=== PATIENT | male | born 1985 | race Hispanic/Latino ===

== ENCOUNTER 2019-07-18 17:56 | Emergency (ER) | payer SELFPAY | END 2019-07-18 19:31 | disposition home or self-care (01) | LOC: EDH 17:56 | DX: L03.115 Cellulitis of right lower limb (principal); Z72.0 Tobacco use ==

== ENCOUNTER 2024-01-04 08:46 | Emergency (ER) | payer SELFPAY ==
[~2024-01-04] VITALS: Ht 167.6 cm; Wt 86.2 kg
[2024-01-04] MEDS ORDERED: CIPR7.5D7 OT (11:00)
[2024-01-04 11:04] VITALS: BP 121/80; PULSE 65; RESP 16; O2SAT 100
== END 2024-01-04 11:07 | disposition home or self-care (01) ==
LOC: EDH 08:46
DX: T16.1XXA Foreign body in right ear, initial encounter (principal); W44.9XXA Unspecified foreign body entering into or through a natural orifice, initial encounter; Y93.89 Activity, other specified; Y92.89 Other specified places as the place of occurrence of the external cause; Y99.8 Other external cause status

== ENCOUNTER 2024-09-30 11:49 | Emergency (ER) | payer SELFPAY ==
[~2024-09-30] VITALS: Ht 167.6 cm; Wt 87.5 kg
[~2024-09-30 11:49] MED LIST: CIPR7.5D7 OT
--- NOTE | 2024-09-30 12:35 | EKG ---
[facility] Test Date: 2024-09-30 Test Time: 12:32:59 Pat Name: KENDRA CLIFTON Department: [facility] Room: Gender: M Package Delivery Room Service Runner: [id number] [phone] [id number] Requested By: PETE CALABRESE Order Number: [id number] Reading MD: Fareed Bach Measurements Intervals [place] Rate: 63 P: 35 MN: 158 QRS: 7 QRSD: 90 T: 42 QT: 404 QTc: 414 Interpretive Statements Sinus rhythm No previous ECG available for comparison Electronically Signed On 10-02-2024 13:06:43 CDT by Fareed Bach Please click the below link to view image of tracing.
[2024-09-30 12:39] LABS: BASOPHILS # (AUTO) 0.08 K/uL (0.00-0.20); BASOPHILS % (AUTO) 1.1 % (0.0-5.0); EOSINOPHILS # (AUTO) 0.17 K/uL (0.00-0.70); EOSINOPHILS % (AUTO) 2.4 % (0.0-8.0); HEMATOCRIT 49.6 % (42-54); IMMATURE GRANULOCYTE ABSOLUTE 0.03 K/uL (0-1); LYMPHOCYTES % (AUTO) 27.7 % (21.0-51.0); MEAN CORPUSCULAR HEMOGLOBIN 30.4 pg (27.0-33.0); MEAN CORPUSCULAR HGB CONC 33.7 g/dL (32.0-36.0); MEAN CORPUSCULAR VOLUME 90.3 fL (79-99); MONOCYTES # (AUTO) 0.6 K/uL (0.1-1.0); MONOCYTES % (AUTO) 8.6 % (3.0-13.0); NEUTROPHILS # (AUTO) 4.3 K/uL (1.8-7.7); NEUTROPHILS % (AUTO) 59.8 % (40.0-77.0); PLATELET COUNT (AUTO) 324 K/uL (130-400); RED BLOOD CELL COUNT(AUTO) 5.49 MIL/uL (4.50-6.20); RED CELL DISTRIBUTION WIDTH 12.1 % (11.0-15.5); WHITE BLOOD COUNT (AUTO) 7.1 K/uL (4.8-10.8)
[2024-09-30 12:48] LABS: CREATININE 1.2 mg/dL (0.5-1.3); POTASSIUM 4.1 mmol/L (3.5-5.1)
[2024-09-30 12:52] LABS: ALBUMIN 3.9 g/dL (3.5-5.0); BILIRUBIN,TOTAL 0.4 mg/dL (0.2-1.0); TOTAL PROTEIN, SERUM 7.6 g/dL (6.0-8.3)
--- NOTE | 2024-09-30 13:13 | ERN ---
General Chief Complaint: Abdominal Pain Stated Complaint: DISCOMFORT IN STOMACH Time Seen by MD: 11:51 Source: patient History of Present Illness Initial Comments PATIENT IS A 39-YEAR-OLD MALE COMING IN COMPLAINING OF THE DISCOMFORT. HE STATES HE WAS EVALUATED BY CARDROOM DRAWING RUNNER AND WAS DIAGNOSED WITH A GASTRITIS. HE STATES THAT HE HAD A ENDOSCOPY PERFORMED NO ACUTE FINDINGS WERE PRESENT.. HE STATES THAT COUPLE OF WEEKS AGO HE STARTED PRESENTING WITH GENERALIZED ABDOMINAL DISCOMFORT Allergies: Coded Allergies: No Known Drug Allergies (Unverified Allergy, Unknown, 07/18/19) Home Meds Active Scripts Ciprofloxacin HCl/Dexameth (Ciproflox-Dexameth Otic Susp) 0.3 %-0.1 % Drops.susp, 7.5 ML OT BID for 7 Days, #28 DROP Prov:VINCENZO ROMERO 01/04/24 Past Medical History Past Medical History: No Pertinent History Past Surgical History: None ROS Dictation CONSTITUTIONAL: NO CHILLS, NO FEVER, NO WEAKNESS, NO DIAPHORESIS, NO MALAISE. HEAD/FACE: NO SIGNS OF TRAUMA. EENT: NO EYE PAIN, NO BLURRED VISION, NO TEARING, NO DOUBLE VISION, NO EAR PAIN, NO EAR DISCHARGE, NO NOSE PAIN, NO NASAL CONGESTION, NO THROAT PAIN, NO THROAT SWELLING, NO MOUTH PAIN. RESPIRATORY: NO COUGH, NO ORTHOPNEA, NO SOB, NO STRIDOR, NO WHEEZING. CARDIOVASCULAR: NO CHEST PAIN, NO EDEMA, NO PALPITATIONS, NO SYNCOPE. GASTROINTESTINAL/ABDOMINAL: ABDOMINAL PAIN, NO CONSTIPATION, NO DIARRHEA, NO NAUSEA, NO VOMITING. GENITOURINARY: NO ABNORMAL DISCHARGE, NO DYSURIA, NO FREQUENT URINATION, NO HEMATURIA. NO COMPLAINTS OF PAIN IN THE GENITALS. MUSCULOSKELETAL: NO BACK PAIN, NO GOUT, NO JOINT PAIN, NO JOINT SWELLING, NO MUSCLE PAIN, NO MUSCLE STIFFNESS, NO NECK PAIN. INTEGUMENTARY: NO CHANGE IN COLOR, NO CHANGE IN HAIR/NAILS, NO DRYNESS, NO LESION, NO LUMPS, NO RASH. NEUROLOGICAL/PSYCH: NO ANXIETY, NOT DEPRESSED, NO EMOTIONAL PROBLEM, NO HEADACHE, NO NUMBNESS, NO PRE-EXISTING DEFICIT, NO HISTORY OF SEIZURES, NO TREMORS, NO WEAKNESS. HEMATOLOGIC/LYMPHATIC: NOT ANEMIC, NO HISTORY OF BLOOD CLOTS, NO APPARENT BLEEDING, NO BRUISING, GLANDS NOT SWOLLEN. ALL SYSTEMS NEGATIVE, EXCEPT NOTED. Physical Exam Physical Exam Dictation VITAL SIGNS: REVIEWED. GENERAL APPEARANCE: ALERT, ORIENTED X3, NO ACUTE DISTRESS, OBESE. HEAD AND FACE: NON-TRAUMATIC. EYES: PERRL, PINK CONJUNCTIVAS, EYELID NO TRAUMA, ANTERIOR CHAMBER CLEAR. EARS: PINNAS INTACT AND NO SIGNS OF TRAUMA OR ERYTHEMA. EAR CANALS CLEAR AND NO DISCHARGE. TMS NO ERYTHEMA. NOSE: NO DISCHARGE, NO BLEEDING. OROPHARYNX: MOUTH NORMAL, TEETH NO CARIES, TONGUE PINK. PHARYNX CLEAR, NO ERYTHEMA. TONSILS NO EXUDATES, NO ABSCESSES NOTED. MUCOUS MEMBRANE MOIST. NECK: SUPPLE, NON-TENDER, NO THYROMEGALY, NO MASSES, NO JVD, NO BRUITS. BREAST: DEFERRED. CHEST: NO TENDERNESS, NO CREPITUS, NO PARADOXICAL MOVEMENT, NO RETRACTIONS. LUNGS: CLEAR, WELL-VENTILATED, SYMMETRIC, NO RALES, NO WHEEZING, NO RHONCHI, NO STRIDOR, GOOD BREATH SOUNDS BILATERALLY. HEART: REGULAR RATE, REGULAR RHYTHM, NO MURMUR, NO GALLOPS. VASCULAR: NO PERIPHERAL EDEMA. ABDOMEN: SOFT, POSITIVE BOWEL SOUNDS, NONDISTENDED, NO GUARDING, NONTENDER, NO REBOUND, NO MASSES NO HEPATOMEGALY, NO SPLENOMEGALY, NO RODRIGUEZ'S SIGN, NO HERNIAS. RECTAL: DEFERRED. GENITAL: DEFERRED. NEUROLOGICAL: NORMAL SPEECH, GROSS MOTOR FUNCTION INTACT, GROSS SENSORY FUNCTION INTACT. MUSCULOSKELETAL: NECK NONTENDER, FULL RANGE OF MOTION, BACK NONTENDER, FULL RANGE OF MOTION. EXTREMITIES: NONTENDER, FULL RANGE OF MOTION. SKIN: COLOR PINK, DRY, NO TURGOR, NO RASH, NO LACERATIONS, NO ABRASIONS, NO CONTUSIONS. LYMPHATICS: DEFERRED. Results Laboratory and Microbiology Lab and Micro Result Laboratory Tests Test 09/30/24 12:26 09/30/24 13:05 White Blood Count 7.1 K/uL (4.8-10.8) Red Blood Count 5.49 MIL/uL (4.50-6.20) Hemoglobin 16.7 g/dL (14.0-18.0) Hematocrit 49.6 % (42-54) Mean Corpuscular Volume 90.3 fL (79-99) Mean Corpuscular Hemoglobin 30.4 pg (27.0-33.0) Mean Corpuscular Hemoglobin Concent 33.7 g/dL (32.0-36.0) Red Cell Distribution Width 12.1 % (11.0-15.5) Platelet Count 324 K/uL (130-400) Mean Platelet Volume 9.9 fL (7.5-10.5) Immature Granulocyte % (Auto) 0.4 % (0-1) Neutrophils (%) (Auto) 59.8 % (40.0-77.0) Lymphocytes (%) (Auto) 27.7 % (21.0-51.0) Monocytes (%) (Auto) 8.6 % (3.0-13.0) Eosinophils (%) (Auto) 2.4 % (0.0-8.0) Basophils (%) (Auto) 1.1 % (0.0-5.0) Neutrophils # (Auto) 4.3 K/uL (1.8-7.7) Lymphocytes # (Auto) 2.0 K/uL (1.0-4.8) Monocytes # (Auto) 0.6 K/uL (0.1-1.0) Eosinophils # (Auto) 0.17 K/uL (0.00-0.70) Basophils # (Auto) 0.08 K/uL (0.00-0.20) Absolute Immature Granulocyte (auto 0.03 K/uL (0-1) Nucleated Red Blood Cells 0.0 % (0.0-0.19) Sodium Level 140 mmol/L (136-145) Potassium Level 4.1 mmol/L (3.5-5.1) Chloride Level 104 mmol/L (101-111) Carbon Dioxide Level 30 mmol/L (21-32) Blood Urea Nitrogen 15 mg/dL (7-18) Creatinine 1.2 mg/dL (0.5-1.3) Glomerular Filtration Rate Calc 78 mL/min (>90) Random Glucose 104 mg/dL (70-105) Total Calcium 8.6 mg/dL (8.5-10.1) Total Bilirubin 0.4 mg/dL (0.2-1.0) Aspartate Amino Transf (AST/SGOT) 29 U/L (10-37) Alanine Aminotransferase (ALT/SGPT) 62 U/L (12-78) Alkaline Phosphatase 91 U/L (50-136) Total Creatine Kinase 109 U/L (21-232) Troponin I High Sensitivity 6 ng/L (4-75) Total Protein 7.6 g/dL (6.0-8.3) Albumin 3.9 g/dL (3.5-5.0) Lipase 31 U/L (16-77) Urine Color LIGHT-YELLOW (YELLOW) Urine Appearance CLEAR (CLEAR) Urine pH 6.0 (5.0-8.0) Urine Specific [place] 1.025 (1.001-1.031) Urine Protein NEGATIVE mg/dL (NEGATIVE) Urine Glucose (UA) NEGATIVE mg/dL (NEGATIVE) Urine Ketones NEGATIVE mg/dL (NEGATIVE) Urine Occult Blood NEGATIVE (NEGATIVE) Urine Nitrate NEGATIVE (NEGATIVE) Urine Bilirubin NEGATIVE mg/dL (NEGATIVE) Urine Urobilinogen 0.2 mg/dL (0.2-1.0) Urine Leukocyte Esterase NEGATIVE Dandre/uL Urine Opiates Screen NEGATIVE (NEGATIVE) Urine Barbiturates Screen NEGATIVE (NEGATIVE) Urine Phencyclidine Screen NEGATIVE (NEGATIVE) Urine Amphetamines Screen NEGATIVE (NEGATIVE) Urine Benzodiazepines Screen NEGATIVE (NEGATIVE) Urine Cocaine Screen POSITIVE (NEGATIVE) H Urine Marijuana (THC) Screen POSITIVE (NEGATIVE) H Labs Reviewed?: Yes EKG/XRAY/US/CT/MRI EKG Comment 09/30/2024 TIME 12:32 P.M. VENTRICULAR RATE 63 SINUS RHYTHM [address] WAVE ELEVATION OR DEPRESSION MDM MDM: DIFFERENTIAL DIAGNOSIS:, COCAINE ABUSE, GASTRITIS, CANNABIS ABUSE RATIONALE: TESTS CONSIDERED AND ORDERED SECONDARY TO SHARED DECISION MAKING INCLUDE: PREVIOUS OUTSIDE RECORDS REVIEWED: OLD ER VISITS. RISK OF COMPLICATION AND/OR MORBIDITY OR MORTALITY OF PATIENT MANAGEMENT: NONE MEDICATIONS-PER MEDICATION RECONCILIATION NEED FOR HOSPITALIZATION: PATIENT DOES NOT MEET CRITERIA FOR HOSPITALIZATION. PATIENT IS A 39-YEAR-OLD MALE COMING IN TO BE EVALUATED FOR ABDOMINAL DISCOMFORT. PATIENT STATES THAT HE HAS BEEN EVALUATED IN THE PAST WITH THE SAME THING. HE STATES THAT THESE SYMPTOMS HAS BEEN ONGOING FOR GREATER THAN A MONTH. LABORATORY WORKUP POSITIVE FOR CANNABIS AND COCAINE. PATIENT WAS EDUCATED ON AVOIDANCE OF THE SUBSTANCE THEY CAN CAUSE INCREASED GASTRITIS. PATIENT WILL BE DISCHARGED IN STABLE CONDITION. ALSO ADVISED HIM TO STOP DOING COCAINE IN HIS IT COULD LEAD TO A HEART ATTACK. ED Course Orders Procedure Category Date Status Time Cbc With Differential LAB 09/30/24 Complete 12:13 Comprehensive LAB 09/30/24 Complete Metabolic Panel 12:13 Troponin I High LAB 09/30/24 Complete Sensitivity 12:13 Urinalysis Profile LAB 09/30/24 Complete 12:13 12 Lead Ekg Tracing- EKG 09/30/24 Complete Technical 12:13 Lactated Ringers PHA 09/30/24 Complete 1000ml (Lactated 12:30 Ondansetron 4mg Inj PHA 09/30/24 Complete (Zofran 4mg Inj) 12:30 Lidocaine Hcl 2% PHA 09/30/24 Complete Viscous (Lidocaine Hcl 12:30 Mag/Alum/Simeth 30ml PHA 09/30/24 Complete (Maalox Plus 30ml) 12:30 Pantoprazole 40mg Inj PHA 09/30/24 Complete (Protonix 40mg Inj 12:30 Creatine Kinase, Total LAB 09/30/24 Complete 12:13 Lipase LAB 09/30/24 Complete 12:13 Drug Screen Urine LAB 09/30/24 Complete 12:13 Current Medications Medications (Trade) Dose Ordered Sig/Vilma Route PRN Reason Start Time Stop Time Status Last Admin Dose Admin Al Hydroxide/Mg Hydroxide (MAALox PLUS 30ML) 30 ml ONCE ONCE PO 09/30/24 12:30 09/30/24 12:31 DC 09/30/24 13:26 Lactated Ringer's 1,000 ml @ 0 mls/hr ONCE ONCE IV 09/30/24 12:30 09/30/24 12:31 DC 09/30/24 13:26 Lidocaine HCl (Lidocaine HCl 2% Viscous) 10 ml ONCE ONCE PO 09/30/24 12:30 09/30/24 12:31 DC 09/30/24 13:26 Ondansetron HCl (zoFRAN 4MG INJ) 4 mg ONCE ONCE IVP 09/30/24 12:30 09/30/24 12:31 DC 09/30/24 13:26 Pantoprazole Sodium (PROTonix 40MG INJ) 40 mg ONCE ONCE IVP 09/30/24 12:30 09/30/24 12:31 DC 09/30/24 13:26 Vital Signs Date Time Temp Pulse Resp B/P (MAP) Pulse Ox O2 Delivery O2 Flow Rate FiO2 09/30/24 13:04 97.0 63 14 149/69 98 Room Air* 0 21 09/30/24 11:59 97.0 63 14 149/67 98 Room Air 0 DX & DISP Disposition: Discharge Departure Impression: Primary Impression: Substance abuse Additional Impression: Gastritis Condition: Stable Additional Instructions: FOLLOW-UP WITH PRIMARY CARE PROVIDER IN 1 TO 2 DAYS. TAKE MEDICATIONS DIRECTED HERE IN THE EMERGENCY ROOM. OKAY TO CONTINUE HOME MEDICATIONS UNLESS OTHERWISE DISCUSSED DURING YOUR VISIT IN THE EMERGENCY ROOM TODAY. RETURN TO YOUR NEAREST EMERGENCY ROOM IF SYMPTOMS WORSEN OR IF THERE IS NO IMPROVEMENT. CALL 911 IF YOU NEED IMMEDIATE ASSISTANCE. TAKE TYLENOL [id number] NEEDED AND IF NO CONTRAINDICATIONS ARE PRESENT. INCREASE ORAL HYDRATION. A WOUND CULTURE OR URINE CULTURE WAS ORDERED HERE IN THE EMERGENCY ROOM DEPARTMENT PLEASE FOLLOW-UP WITH PRIMARY CARE PROVIDER AND ADVISE THEM TO GET REPEAT PORTS FROM OUR FACILITY. IF YOU HAD ANY LISSETTE WRAP/SPLINTS THAT WERE APPLIED HERE, PLEASE DO NOT REMOVE THEM UNTIL YOU SEE YOUR PRIMARY CARE OR SPECIALTY. REFERRALS: Referrals: PHILIP GONG (PCP) Time of Disposition: 14:04 PETE CALABRESE MD September 30, 2024 13:13
[2024-09-30] MEDS: LIDOCAINE HCL 2% VISCOUS 15 ML UDCUP PO ONE (13:26)
[2024-09-30] MEDS: ondanSETRON 4MG INJ IVP ONE (13:26)
[2024-09-30] MEDS: MAG/ALUM/SIMETH 30 ML UDCUP PO ONE (13:26)
[2024-09-30] MEDS: PANTOPrazole 40 MG/VIAL IVP ONE (13:26)
[2024-09-30] MEDS: LACTATED RINGERS 1000ML 1,000 ML IV ONE (13:26)
[2024-09-30 13:36] LABS: APPEARANCE,URINE CLEAR (CLEAR); BILIRUBIN,URINE NEGATIVE (NEGATIVE); COLOR,URINE LIGHT-YELLOW (YELLOW); GLUCOSE, URINE (UA) NEGATIVE (NEGATIVE); KETONES,URINE NEGATIVE (NEGATIVE); LEUKOCYTE ESTERASE ,URINE NEGATIVE Leu/uL (NEGATIVE); NITRATE,URINE NEGATIVE (NEGATIVE); OCCULT BLOOD,URINE NEGATIVE (NEGATIVE); PROTEIN,URINE NEGATIVE (NEGATIVE); UROBILINOGEN,URINE 0.2 mg/dL (0.2-1.0)
[2024-09-30 13:38] LABS: ADD UA MICROSCOPIC NO
[2024-09-30 13:41] LABS: AMPHET/METH SCREEN,URINE NEGATIVE (NEGATIVE); BARBITURATE SCREEN, URINE NEGATIVE (NEGATIVE); BENZODIAZEPINES SCREEN,URINE NEGATIVE (NEGATIVE); CANNABINOID SCREEN,URINE POSITIVE (NEGATIVE); COCAINE SCREEN,URINE POSITIVE (NEGATIVE); OPIATE SCREEN,URINE NEGATIVE (NEGATIVE); PHENCYCLIDINE SCREEN,URINE NEGATIVE (NEGATIVE)
[2024-09-30 14:24] VITALS: BP 144/62; PULSE 60; RESP 18; TEMP 97; O2SAT 98
== END 2024-09-30 14:24 | disposition home or self-care (01) ==
LOC: EDH 11:49
DX: K29.70 Gastritis, unspecified, without bleeding (principal); F19.10 Other psychoactive substance abuse, uncomplicated
CPT/HCPCS: 99284; 96374; 96375; 82550; 84484; 80053; 80305; 83690; 85025; 36415; 93005; 81003; J7120; J2405; J2470